=== PATIENT | female | born 1935 | race Caucasian/White ===

== ENCOUNTER → 2020-01-05 | Outpatient (CLI) | payer OTHER, MEDICARE | LOC: SJCVCIMAG 07:16 | PROVIDERS: ATTEND Internal Medicine Cardiovascular Disease | DX: I35.1 Nonrheumatic aortic (valve) insufficiency (principal); R00.1 Bradycardia, unspecified; I10 Essential (primary) hypertension; E78.5 Hyperlipidemia, unspecified ==

== ENCOUNTER → 2021-01-03 | Outpatient (CLI) | payer OTHER, MEDICARE | LOC: SJCVC 11:04 | PROVIDERS: ATTEND Internal Medicine Cardiovascular Disease | DX: R94.31 Abnormal electrocardiogram [ECG] [EKG] (principal); I10 Essential (primary) hypertension; E78.5 Hyperlipidemia, unspecified; R00.1 Bradycardia, unspecified; Z82.49 Family history of ischemic heart disease and other diseases of the circulatory system; Z72.89 Other problems related to lifestyle; Z79.899 Other long term (current) drug therapy ==